=== PATIENT | male | born 1985 | race Caucasian/White ===

== ENCOUNTER 2018-03-29 14:13 | Emergency (ER) | payer OTHER ==
[2018-03-29] MEDS ORDERED: LIDOCAINE 1% MDV 20ML VIAL As Ordered (15:27)
[2018-03-29] MEDS: LIDOCAINE 2% W/EPIN INJ 20ML **PRES FREE INJ (15:30)
[2018-03-29] MEDS: PERCOCET 5MG/325MG TAB PO (15:34)
[2018-03-29] MEDS: cefTRIAXone SOD 1 GM VIAL (J0696) IM (15:35)
== END 2018-03-29 16:07 | disposition home or self-care (01) ==
LOC: M ED 14:13
DX: S81.011A Laceration without foreign body, right knee, initial encounter (principal); W22.8XXA Striking against or struck by other objects, initial encounter; Y92.320 Baseball field as the place of occurrence of the external cause; Y93.64 Activity, baseball; Z88.5 Allergy status to narcotic agent
CPT/HCPCS: J0696